=== PATIENT | male | born 1950 | race Caucasian/White ===

== ENCOUNTER 2016-11-27 15:00 | Inpatient (IN) | payer OTHER ==
[~2016-11-27] VITALS: Ht 167.6 cm; Wt 83.0 kg
--- NOTE | 2016-11-27 15:46 | NUR ---
EMT AT BEDSIDE FOR EKG
--- NOTE | 2016-11-27 15:50 | NUR ---
PT OFF THE FLOOR AT THIS TIME TO XRAY.
[2016-11-27 15:55] LABS: CALCIUM 8.6 mg/dL (8.5-10.1); CHLORIDE SERUM 100 mmol/L (98-107); CREATININE SERUM 1.2 mg/dL (0.7-1.3); GFR1 > 60 mL/min; GLUCOSE SERUM 174 mg/dL (74-106); POTASSIUM SERUM 3.6 mmol/L (3.5-5.1); SODIUM SERUM 134 mmol/L (136-145)
[2016-11-27 15:59] LABS: BASOPHIL % 0.2 % (0-2); PLATELET COUNT 224 x10^3mcL (130-400); RED CELL DISTRIBUTION WIDTH 13.6 % (11.5-14.5)
[2016-11-27 16:00] LABS: ALBUMIN 3.6 g/dL (3.4-5.0); ALKALINE PHOSPHATASE 74 U/L (46-116); ALT/SGPT 24 U/L (16-63); AST/SGOT 19 U/L (15-37); BILIRUBIN TOTAL 0.78 mg/dL (0.20-1.00); TOTAL PROTEIN, SERUM 7.3 g/dL (6.4-8.2)
--- NOTE | 2016-11-27 16:16 | NUR ---
PT BROUGHT TO ER BY SON FOR BILATERAL ARM PAIN AFTER FALLING 4 FT ONTO CONCRETE AT WORK YESTERDAY. PT WAS TAKEN BY AMBULANCE TO [facility] AND D/C HOME AND WAS TO F/U AT [facility]. PT WAS SEEN YESTERDAY AND TODAY BY THEM AND WAS TOLD HE NEEDS TO BE SEEN IN ER. PT IS AMBULATORY, DENIES HITTING HEAD OR LOC, +PMSC AND +RADIAL PULSES. PT BREATHING IS UNLABORED AND EVEN AND PTIN SLING FROM POE X1 DAY.
[2016-11-27] MEDS ORDERED: NORCO1 TA2 (17:03)
[2016-11-27] MEDS ORDERED: ASPIR 8181 MG PO (17:03)
--- NOTE | 2016-11-27 17:25 | NUR ---
PT RESTING IN POC, CALL LIGHT IN REACH OF HAND AND SIDE RAILS UP FOR SAFETY.
--- NOTE | 2016-11-27 17:32 | NUR ---
per dr navarro, pt ok to be transfered withot ua.
[2016-11-27 18:12] LABS: PHOSPHOROUS 3.1 mg/dL (2.5-4.9)
--- NOTE | 2016-11-27 18:14 | NUR ---
GAVE REPORT TO SANA ARCINIEGA, ALL QUESTIONS ADDRESSED AT THIS TIME.
[2016-11-27 18:15] LABS: CHOLESTEROL/HDL RATIO 3.7; MAGNESIUM 2.1 mg/dL (1.8-2.4)
[2016-11-27 18:16] LABS: T3 TOTAL 1.07 ng/mL
[2016-11-27 18:25] LABS: FREE T4 1.07 ng/dL (0.76-1.46); FREE THYROXINE INDEX 2.8 ug/dL (1.4-4.5); T4(THYROXINE) 8.9 ug/dL (4.7-13.3)
[2016-11-27 18:51] VITALS: BP 132/77
--- NOTE | 2016-11-27 18:59 | NUR ---
REC'D AOX4, SPEECH CLEAR, DENIES DIZZINES AND SALGADO. C/O RIGHT ARM/SHOULDER PAIN. FAMILY AT THE BEDSIDE. ATTACHED TELE 2 NSR. DENIES CHEST PAIN. ON RA, NO SOB NOTED. NOTED SLING TO LEFT ARM AND BRACE TO RIGHT ARM STRAPPED TO CHEST VEST. IV SITE WNL. ORIENTED PT TO ROOM AND SURROUNDINGS. CALL LIGHT WITHIN REACH, PROVIDED REPORT TO SANA ARCINIEGA.
--- NOTE | 2016-11-27 19:20 | NUR ---
PATIENT RECEIVED AWAKE, ALERT AND ORIENTED X 4. SON AT BEDSIDE. NO DISTRESS NOTED. PATIENT STATES PAIN TO BUE ONLY PRESENT WITH MOVEMENT. DENIES PAIN AT THIS TIME. IV SITE TO RIGHT HAND, PATENT AND INTACT. IV FLUID INFUSING PER DOCTOR'S ORDER. BED IN LOWEST POSITION. CALL LIGHT WITHIN REACH. WILL CONTINUE TO MONITOR.
[2016-11-27 21:07] LABS: UA SPECIFIC GRAVITY <=1.005 (1.005-1.035); microscopic required? YES; urine erythrocyte 1+ (NEGATIVE)
[2016-11-27 21:10] VITALS: BP 134/79
[2016-11-27 21:16] LABS: AMPHETAMINE QUAL UR NONE DETECTED (NEG <=1000)
--- NOTE | 2016-11-28 05:00 | NUR ---
PATIENT RESTED THROUGHOUT THE NIGHT. NO DISTRESS NOTED. MEDICATED FOR PAIN WITH NORCO PO (PER PATIENT'S REQUEST) X 2 PER DOCTOR'S PRN ORDER. PAIN MANAGED THROUGHOUT THE NIGHT. ALL NEEDS MET. SAFETY AND COMFORT MEASURES MAINTAINED. BED IN LOWEST POSITION. CALL LIGHT WITHIN REACH. WILL CONTINUE TO MONITOR AND ENDORSE TO NEXT SHIFT NURSE.
[2016-11-28 05:45] VITALS: BP 120/69
--- NOTE | 2016-11-28 07:15 | NUR ---
RECIVED REPORT MARJORIE ORNELAS RN AT BEDSIDE. PT IS AOX4, ABLE TO FOLLOW COMMANDS. FOUND PT ON RA, NO SIGNS OF DISTRESS OR SOB NOTED AT THIS TIME. L ARM IS ON A SLING AT THIS TIME. PT IS ABLE TO WIGGLE FINGERS AND CAP REFIL WNL. SKIN INTACT. PT REFUSE PAIN MEDICATION. NS INFUSING AT 100 ML/HR TO R HAND. IV SITE WNL. BED AT LOW AND CALL LIGHT WITHIN REACH. STANDARD PRECAUTION IS EMPLEMENTED. PT IS AWRE OF BEING NPO.
[2016-11-28 09:14] VITALS: BP 142/61
--- NOTE | 2016-11-28 10:06 | NUR ---
KOLTON WIPE IS GIVEN TO PT, PT'S DAUGHTER WILL ASSIST PT TO WIPE BELOW NECK. NO SIGNS OF DISTRESS OR SOB NOTED AT THIS TIME. BED AT LOW AND CALL LIGHT WITHIN REACH.
--- NOTE | 2016-11-28 11:47 | NUR ---
PT IS TRANSFER TO OR VIA BED, PT IS SALINE LOCK. NO SIGNS OF SOB OR ACUTE DISTRESS. CONSENTS AND CHECKLIST IS IN CHART. AWAITING FOR PT FROM SX.
--- NOTE | 2016-11-28 12:46 | NUR ---
echocardiogram not done patient not in room
--- NOTE | 2016-11-28 14:48 | NUR ---
ECHO PENDING PT. NOT IN ROOM
--- NOTE | 2016-11-28 17:34 | NUR ---
PT TRANSFER BACK TO ROOM VIA BED, NO SIGNS OF SOB OR ACUTE DISTRESS. PT DENIES PAIN. L WRIST CAST IS CDI. R SHOULDER ON IMMBOLIZER, FAVIOLA TAPE ON R SHOULER CDI. PT DENIES PAIN AND N/V AT THIS TIME. RT IN ROOM EXPLAINING IS. BED AT LOW AND CALL LIGHT WITHIN REACH. AT BEDSIDE.
--- NOTE | 2016-11-28 17:36 | NUR ---
PT IS TRANSFER BACK TO ROOM VIA BED. NO SIGNS OF ACUTE DISTRESS OR SOB NOTED. FAMILY AT BEDSID.
[2016-11-28 17:39] VITALS: BP 145/73
--- NOTE | 2016-11-28 17:44 | NUR ---
BENEDICT CATH REMOVED. PT IS AWARE TO REPORT WHEN HE URINATES. BED AT LOW AND CALL LIGHT WITHIN REACH. PT'S TRAY IS SET UP. IS FEEDING PT.
[2016-11-28 18:45] VITALS: BP 145/73
--- NOTE | 2016-11-28 19:11 | NUR ---
ENDORSED ALL CARE TO CHEO ARCINIEGA. PT RETING IN BED AT THIS TIME. R SHOULDER DRESSING CDI. L ARM CAST, CDI. PT DENIES ANY PAIN AT THIS TIME. NS INFUSING AT 100 ML/HR TO L FOOT. IV SITE WNL. BED AT LOW AND CALL LIGHT WITHIN REACH.
--- NOTE | 2016-11-28 19:20 | NUR ---
PATIENT RECEIVED AWAKE, ALERT, AND ORIENTED X 4. NO DISTRESS NOTED. PATIENT C/O 5/10 PAIN TO HIS BUE BUT REFUSED PAIN MEDS AT THIS TIME STATING PAIN IS ONLY PRESENT WITH MOVEMENT. IV SITE TO LEFT FOOT, PATENT AND INTACT. IV FLUID INFUSING PER DOCTOR'S ORDER. BED IN LOWEST POSITION. CALL LIGHT WITHIN REACH. WILL CONTINUE TO MONITOR.
--- NOTE | 2016-11-28 22:00 | NUR ---
BLEEDING THROUGH DRESSING NOTED ON RIGHT SHOULDER. REINFORCED WITH GAUZE AND TAPE. DR ARCHULETA AWARE. WILL CONTINUE TO MONITOR.
[2016-11-28 22:05] VITALS: BP 141/79
--- NOTE | 2016-11-29 05:17 | NUR ---
PATIENT RESTED IN INTERVALS THROUGHOUT THE NIGHT. MEDICATED FOR PAIN WITH NORCO PO X 1 AND MORPHINE IVP X 1 PER DOCTOR'S PRN ORDER. PAIN MANAGED THROUGHOUT THE NIGHT. ALL NEEDS MET. SAFETY AND COMFORT MEASURES MAINTAINED. BED IN LOWEST POSITION. CALL LIGHT WITHIN REACH. WILL CONTINUE TO MONITOR AND ENDORSE TO NEXT SHIFT NURSE.
[2016-11-29 05:49] VITALS: BP 123/62
[2016-11-29 06:17] LABS: BASOPHIL % 0.3 % (0-2); PLATELET COUNT 156 x10^3mcL (130-400); RED CELL DISTRIBUTION WIDTH 13.7 % (11.5-14.5)
[2016-11-29 06:33] LABS: CARBON DIOXIDE 27.3 mmol/L (21-32); CHLORIDE SERUM 105 mmol/L (98-107); CREATININE SERUM 0.9 mg/dL (0.7-1.3); GFR1 > 60 mL/min; GLUCOSE SERUM 122 mg/dL (74-106); PHOSPHOROUS 3.1 mg/dL (2.5-4.9); POTASSIUM SERUM 3.9 mmol/L (3.5-5.1); SODIUM SERUM 138 mmol/L (136-145)
--- NOTE | 2016-11-29 07:25 | NUR ---
ECHO NOT DONE PENDING DR. CONSULT POST SURGERY. UNABLE TO REMOVE CHEST WRAP TO PERFORM ECHO STUDY.
[2016-11-29 09:05] VITALS: BP 115/53
--- NOTE | 2016-11-29 10:32 | NUR ---
SON WAS OUT OF ROOM DURING ROUNDS THIS AM. WOULD LIKE TO TALK WITH DOCTOR FOR UPDATED. PAGED AND SPOKE WITH DR BRANNON WHO WILL COME SEE PATIENT LATER THIS MORNING.
--- NOTE | 2016-11-29 12:30 | NUR ---
PATIENT RESTING IN BED COMFORTABLE, DENIES PAIN, SON AT BEDSIDE ASSISTING PATIENT WITH LUNCH. NEEDS ANTICIPATED. CALL LIGHT WITHIN REACH AND BED IN LOW POSITION.
--- NOTE | 2016-11-29 13:08 | NUR ---
ECHOCARDIOGRAM COMPLETED
--- NOTE | 2016-11-29 13:43 | NUR ---
EDUCATED ON NEED TO MOVE FINGERS TO ASSIST WITH GETTING SWELLING TO GO DOWN IN HANDS. ALSO TO CONTINUE USING IS. VERBALIZED UNDERSTANDING.
--- NOTE | 2016-11-29 13:50 | NUR ---
UP EARLIER WITH PT. ONLY PAIN IS WHEN HE GOT IN AND OUT OF BED. DECLINES PAIN MEDS AT THIS TIME.
--- NOTE | 2016-11-29 13:59 | NUR ---
REPORTS PAIN 9/10 WHEN MOVING THE SURGERY SITE. WHEN NOT MOVING, 2/10. MEDICATED WITH MORPHINE FOR 9/10 PAIN FROM REPOSITIONING.
--- NOTE | 2016-11-29 14:47 | NUR ---
Dr. Galicia seen patient and speak to son, update pt's condition, MD assess Rt shoulder and changed dressing, patient tolerated well, no complaints, family remain at bedside, call light within reach.
--- NOTE | 2016-11-29 17:04 | NUR ---
PT EVAL NOTES [id number] Patient is a 66 y/o male admitted s/p fall sustaining R prox humerus fx and L distal radius fx s/p R shld hemiarthroplasty of R prox humerus and ORIF of L distal radius. Patient sustained injury while at work falling off back on truck. Patient lives with family in 2 story condo with one flight of step to negotiate, PLOF indep with gait and all ADLs/IADLs. Prec: NWB BUE with RUE in shld immobilizer and L arm casted, fall risk, 2PA S: Patient c/o 01/14 R shld and L wrist pain, premedicated, cleared by RN, and patient agreeable to PT POC. O: Patient appears a/o, patient and son educated on PT POC/safety with mobility with good return understanding. BP 151/62/821 on RA with SpO2 98%. Bed mobility supine<>sit, rolling: mod assist Transfers sit<>stand, bed<>chair: min assist Gait: 200 w/o AD with DIRECTOR OF PSYCHIATRY with min assist Patient demo unsteady antalgic recip gait d/t decreased BUE swing Patient assisted BTB with modx2 assist, all lines in place, call light in hand, nursing aware. A: PT eval completed, and patient will benefit from skilled PT tx to adress functional limitations. Patient presents with gait instability s/p sx requiring overall min/mod assist, inability of BUE mgmt, impairing functional mobility. Recomm home with assist, no DME at this time, f/u with OPPT once appropriate and [facility]. P: Patient to be seen per PT POC, twice daily 5x/wk;once daily 1x/wk x 1/wk with focus on bed mobility/transfers/gait/stair trng, and patient/fam edu. Cont with PT POC as ventura/safe. [id number]' [id number] TUG 20 [id number] Patient/fam education and trng with bed mobility, transers, gait, and safety with good return undestanding and demo, but will cont to benefit from further edu. PVE8'
--- NOTE | 2016-11-29 17:22 | NUR ---
PATIENT RESTING IN BED DENIES PAIN BUT OFFERED JESSICA, PATIENT STATE " WANT TO BE STRONG". ENCOURAGE PAIN MED FOR COMFORT AND ABLE TO EXERCISE HANDS W/O PAIN. FAMILY MEMBERS REMAIN AT BEDSIDE. CALL LIGHT WITHIN REACH.
[2016-11-29 19:00] VITALS: BP 124/61
--- NOTE | 2016-11-29 19:40 | NUR ---
RECEIVED Pt AAOX3 CALM AND COOPERATIVE WITH CARE. DENIES ANY CHEST PAIN. LUNG SOUNDS ARE CTA BILATERALLY. PULSE OX 97% ON 2L/NC, DENIES ANY SOB. ENCOURAGED TO BE ON ROOM AIR IF NOT SOB. ACTIVE BOWEL SOUNDS X4 QUADS. DENIES ANY ABD PAIN, N/V/D. VOIDS FREELY USING THE URINAL. CAST TO RUE CDI, EDEMA NOTED TO RIGHT HAND, GOOD CAP REFILL, DENIES ANY PAIN, TINGLING, NUMBNESS. LEFT UPPER SHOULDER WITH DRESSING CDI AND SLING IN PLACE. DENIES ANY PAIN. IV SITE TO LEFT FOOT PATENT. RE-ORIENTED TO ROOM AND CALL LIGHT SYSTEM WITHIN EASY REACH. WILL CONTINUE TO MONITOR.
[2016-11-29 21:27] VITALS: BP 132/55
--- NOTE | 2016-11-30 00:30 | NUR ---
Pt AMBULATED IN HALLWAY WITH SON AT HIS SIDE. STEADY GAIT, NO SOB NOTED. REPORTS FEELING TIRED FAST WITH AMBUALTION. SAT AT CHAIR FOR 30MINUTES AFTER AMBULATION AND LATER ASSISTED BACK IN BED. SON IS AT BEDSIDE. WILL CONTINUE TO MONITOR.
--- NOTE | 2016-11-30 03:06 | NUR ---
Pt MEDICATED WITH NORCO FOR PAIN TO BUE AT 6. WILL CONTINUE TO MONITOR.
--- NOTE | 2016-11-30 05:08 | NUR ---
MEDICATED NEEDED FOR PAIN. Pt AMBULATED IN THE HALLWAY. VOIDING FREELY. NO BM NOTED. CAST AND DRESSINGS REMAIN IN PLACE CDI. CURRENTLY RESTING WITH EYES CLOSED. SON IS AT BEDSIDE. IV TO LEFT FOOT REMAIN PATENT. SAFEY AND COMFORT MEASURES REMAIN IN PLACE. WILL CONTINUE TO MONITOR.
[2016-11-30 05:46] LABS: BASOPHIL % 0.5 % (0-2); PLATELET COUNT 158 x10^3mcL (130-400); RED CELL DISTRIBUTION WIDTH 13.3 % (11.5-14.5)
[2016-11-30 06:04] LABS: CALCIUM 7.7 mg/dL (8.5-10.1); CHLORIDE SERUM 105 mmol/L (98-107); CREATININE SERUM 0.8 mg/dL (0.7-1.3); GFR1 > 60 mL/min; GLUCOSE SERUM 113 mg/dL (74-106); MAGNESIUM 1.9 mg/dL (1.8-2.4); PHOSPHOROUS 3.6 mg/dL (2.5-4.9); POTASSIUM SERUM 3.8 mmol/L (3.5-5.1); SODIUM SERUM 140 mmol/L (136-145)
[2016-11-30 06:07] VITALS: BP 124/49
--- NOTE | 2016-11-30 06:28 | NUR ---
I HAVE REVIEWED THE DATA COLLECTION BY YONATAN (NAME): SHUN REHMAN ENTERED ON (DATE/TIME):11/29/2016 7 PM-7 PM I CONCUR WITH THE DATA AND ANY EXCEPTIONS OR COMMENTS ARE LISTED BELOW:
--- NOTE | 2016-11-30 07:30 | NUR ---
PATIENT RESTING IN BED AWAKE AND ALERT WITH SON REMAIN AT BEDSIDE, DENIES PAIN AT THIS TIME, IV INTACT AND PATENT, NEEDS ANTICIPATED, CALL LIGHT WITHIN REACH.
--- NOTE | 2016-11-30 07:40 | NUR ---
SON FEEDING PATIENT BREAKFAST.
--- NOTE | 2016-11-30 09:30 | NUR ---
PATIENT SIT UP AT SIDE OF BED, SON GET PATIENT READY FOR AM CARE AND TO WALK IN HALLWAY, LOA 1 TAB PO GIVEN WITH ENCOURAGE TO TAKE IT FOR COMFORT WHILE WALKING, DUE MED GIVEN. NEEDS ANTICIPATED.
--- NOTE | 2016-11-30 09:44 | NUR ---
WASHED HAIR, LINEN CHANGE. WAS MEDICATED WITH NORCO. AMBULATED TO BATHROOM FOR ADLS. GIVEN WARM WIPES AND SON ASSISTING WITH BATH IN BATHROOM. ORAL CARE AND LOTION ALSO PROVIDED.
--- NOTE | 2016-11-30 09:45 | NUR ---
DISCUSSED IS USE. VERBALIZED UNDERSTANDING.
--- NOTE | 2016-11-30 10:11 | NUR ---
SITTING UP IN CHAIR, FAMILY BEDSIDE.
[2016-11-30 10:14] VITALS: BP 134/49
--- NOTE | 2016-11-30 11:07 | NUR ---
Per Dr. Destinee bruno to heplock but keep patient IV site.
--- NOTE | 2016-11-30 14:59 | NUR ---
MEDICATED WITH NORCO FOR 5/10 PAIN.
--- NOTE | 2016-11-30 17:30 | NUR ---
PATIENT UP TO BATHROOM WITH CLINICAL INVESTIGATOR, NO COMPLAINT. NEEDS ANTICIPATED.
--- NOTE | 2016-11-30 18:36 | NUR ---
Patient sit up at side of bed with visitor and family members at bedside, denies pain at this time. Needs anticipated. Call light within reach.
[2016-11-30 18:41] VITALS: BP 147/71
[2016-11-30 18:51] VITALS: BP 147/71
--- NOTE | 2016-11-30 18:53 | NUR ---
PATIENT RESTING IN BED REQUEST FOR PAIN MED, C/O 01/14 AFTER EXERCISE HANDS, NORCO 1 TAB PO GIVEN, NEEDS ATTENDED. CALL LIGHT WITHIN REACH.
--- NOTE | 2016-11-30 19:59 | NUR ---
PT CURRENTLY RESTING IN BED, NO ACUTE DISTRESS. A/O X4. NO TELE, MED/SURG. DENIES CHEST PAIN. PULSES PALPABLE IN ALL EXTREMITIES, TRACE EDEMA TO LEFT HAND NOTED. LUNG SOUND CTA BILATERALLY. BOWEL SOUNDS ACTIVE, LAST BM 11/27/16. VOIDING WELL. MILD GENERALIZED WEAKNESS NOTED, WEAKNESS TO BUE NOTED, AMBULATORY WITH ASSIST. LEFT ARM CAST, RIGHT SHOULDER DRESSING CDI. DENIES PAIN AT THIS TIME. IV PATENT AND INTACT. BED IN LOWEST POSITION, SIDE RAILS UP X2, SCDS IN PLACE, CALL LIGHT WITHIN REACH. WILL CONTINUE TO MONITOR.
[2016-11-30 21:48] VITALS: BP 122/54
[2016-12-01 05:34] VITALS: BP 122/54
[2016-12-01 05:53] LABS: BASOPHIL % 0.5 % (0-2); PLATELET COUNT 200 x10^3mcL (130-400); RED CELL DISTRIBUTION WIDTH 13.3 % (11.5-14.5)
--- NOTE | 2016-12-01 06:24 | NUR ---
PT SLEPT PERIODICALLY THROUGHOUT NIGHT, NO ACUTE DISTRESS. ALL NEEDS MET AND ATTENDED TO. NO SIGNIFICANT CHANGES. MEDICATED PAIN PER EMAR. IV PATENT AND INTACT. BED IN LOWEST POSITION, SIDE RAILS UP X2, SCDS IN PLACE, CALL LIGHT WITHIN REACH. WILL ENDORSE CARE TO ONCOMING NURSE.
[2016-12-01 06:33] LABS: SODIUM SERUM 138 mmol/L (136-145)
[2016-12-01 06:34] LABS: CHLORIDE SERUM 104 mmol/L (98-107)
[2016-12-01 06:35] LABS: CALCIUM 8.3 mg/dL (8.5-10.1); CARBON DIOXIDE 27.9 mmol/L (21-32); CREATININE SERUM 0.7 mg/dL (0.7-1.3); GFR1 > 60 mL/min; GLUCOSE SERUM 118 mg/dL (74-106)
--- NOTE | 2016-12-01 08:00 | NUR ---
A/A/OX3; COMORAN SPEECH; SON AT BED SIDE FOR TRANSLATION. NO RESP DISTRESS. CAST TO LUE INTACT. DRSG TO RT SHOULD WITH IMMOBOLIZER. AMBULATED WITH ASSIST. STATED LUE AND RT SHOULDER PAIN ON 11/14, TOLERATED LEVEL. IVHL'D TO L FOOT INTACT. ALEXY HANDS SELLING 1-2+. 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 LARGE BRUISE TO BUE AND RT WRIST AREA NOTED. CALL LIGHT IN REACH.
--- NOTE | 2016-12-01 08:20 | NUR ---
AND MEDICAL TEAM MADE MORNING ROUND.PLAN OF CARE DISCUSSED WITH PATIENT AND HIS SON, INCLUDED WITH PHYSICAL THERAPY. PATIENT AGREED WITH PLAN OF CARE.
[2016-12-01 09:35] VITALS: BP 149/65
--- NOTE | 2016-12-01 15:32 | NUR ---
PT NOTES TIME [id number] S: CLEARED BY RN FOR P.T. TX. PATIENT IS AWAKE & ALERT IN A SEMI RANDOLPH POSITION IN BED. AGREEABLE TO PT TX. NO C/O PAIN OR DIZZINESS AT THIS TIME. FAMILY PRESENT AT BEDSIDE. O: VITALS AT REST BP 149/65, HR 85 BPM, SPO2 ON RA 96% BED MOBILITY: SUPINE<>SIT W/ MIN ASSIST. VC GIVEN FOR STEP BY STEP BED MOBILITY SEQUENCE. TRANSFER: SIT<>STAND SBA/CGA TOILETING SBA/CGA GAIT: 80FT NO A.D. SBA/CGA. PATIENT HAS A STEADY GAIT. NO LOB. DECREASE GAIT VELOCITY & SHORTENED STEP LENGTHS. PATIENT DOES STATE TO SON "LEGS FEEL WEAK." EDUCATED PATIENT ON ENERGY CONSERVATION & SAFETY FOR FALL PREVENTION W/ GOOD UNDERSTANDING. STAIRS: 10 STEPS UP/DOWN W/ AHA CGA. PATIENT EDUCATED ON A NON RECIPROCRAL STAIR TRAINING PATTERN. PATIENT UNABLE TO HOLD ONTO RAILING DUE TO R HUMERUS & L WRIST FX. THEREFORE PATIENT & FAMILY EDUCATED ON SAFE STAIR TRAINING W/ GOOD UNDERSTANDING. COOPERATIVE & APPRECIATIVE OF CARE. THER EX SIT<>STAND X 4 REPS & FINGER FLEX/EXT EKATERINA. W/ REST PERIODS IN BETWEEN. PATIENT IS SAFELY & COMFORTABLY IN A SEMI RANDOLPH POSITION IN BED W/ CALL BUTTON & TABLE IN REACH. LEFT IN CARE OF FAMILY. RN NOTIFIED. P: DISCUSSED W/ PRIMARY PHYSICAL THERAPIST [id number]',[id number]',[id number]',PVE(SETUP/TOILETING)
--- NOTE | 2016-12-01 15:49 | NUR ---
PT NOTES P.M. TIME [id number] S: CLEARED BY RN FOR PT TX. PATIENT IS AWAKE & ALERT IN A SEMI RANDOLPH POSITION IN BED. AGREEABLE TO P.T. TX. NO C/O PAIN OR DIZZINESS. FAMILY PRESENT AT BEDSIDE. O: VITALS AT REST 124/61, HR 94 BPM, SPO2 ON RA 95%. BED MOBILITY: SUPINE<>SIT MIN ASSIST. STILL CONTINUES TO REQUIRE VC W/ PROPER BED MOBILITY STEP BY STEP SEQUENCING. TRANSFER: SIT<>STAND SBA. GAIT: 80FT NO A.D. SBA/CGA. PATIENT STILL CONTINUES TO DEMO A STEADY GAIT NO LOB. NO ARM SWING DUE TO R UE IN A SHOULDER IMMOBILIZER & L UE IN A CAST. R HUMERUS & L WRIST FX. DECREASE GAIT VELOCITY. EDUCATED ON SAFETY FOR FALL PREVENTION W/ GOOD UNDERSTANDING. STAIRS: 10STEPS UP/DOWN X 2 AHA CGA. PATIENT STILL DEMO'S A STEADY NON RECIPROCAL STAIR TRAINING PATTERN. NO LOB OBSERVED. DURING SECOND ATTEMPT AT STAIR TRAINING, PATIENT'S PROVIDED CGA W/ MINIMAL VC/TC GIVEN TO ASSIST PATIENT SAFELY. EDUCATED PATIENT & ON STAIR TRAINING W/ G UNDERSTANDING. COOPERATIVE & APPRECIATIVE OF CARE. PATIENT IS SAFELY & COMFORTABLY IN A SEMI RANDOLPH POSITION IN BED W/ CALL BUTTON & TABLE IN REACH. LEFT IN CARE OF RN. P: DISCUSSED W/ PRIMARY PHYSICAL THERAPIST [id number]',TA10'
--- NOTE | 2016-12-01 16:00 | NUR ---
AMBULATED IN [address] WITH ASSIST OF . DENIED PAIN NOW.
[2016-12-01 18:21] VITALS: BP 142/93
--- NOTE | 2016-12-01 19:38 | NUR ---
RECEIVED PATIENT IN BED AWAKE, ALERT AND ORIENTED WITH NO C/O PAIN TO RT SHOULDER AND LEFT ARM THIS TIME. LEFT ARM WITH CAST AND RT SHOULDER WITH IMMOBILIZER. FAMILY MEMBERS AT BEDSIDE. SCD TO BLE IN PLACE. IV TO LEFT FOOT HEPLOCK AND FLUSHED WITH NS. WILL CONTINUE TO MONITOR. CALL LIGHT WITHIN REACH.
--- NOTE | 2016-12-01 21:07 | NUR ---
C/O PAIN TO RIGHT SHOULDER AT SCALE OF 7/10 PER PATIENT, MEDICATED WITH NORCO PO PRESCRIBED. WILL CONTINUE TO MONITOR.
[2016-12-01 21:32] VITALS: BP 170/68
--- NOTE | 2016-12-01 22:52 | NUR ---
T-100.0 COOLING MEASURES DONE, WILL RECHECK TEMP.
--- NOTE | 2016-12-01 23:32 | NUR ---
SLEEPING THIS TIME BREATHING EASY AND NONLABOR. WILL CONTINUE TO MONITOR.
--- NOTE | 2016-12-02 05:24 | NUR ---
SLEPT FAIRLY C/O RT SHOULDER PAIN X1 THROUGHOUT THE SHIFT AND MEDICATED PRESCRIBED. ALL NEEDS ATTENDED.
[2016-12-02 06:20] VITALS: BP 144/40
[2016-12-02 06:20] LABS: BASOPHIL % 0.5 % (0-2); PLATELET COUNT 250 x10^3mcL (130-400); RED CELL DISTRIBUTION WIDTH 13.7 % (11.5-14.5)
[2016-12-02 06:29] LABS: CALCIUM 8.9 mg/dL (8.5-10.1); CARBON DIOXIDE 30.5 mmol/L (21-32); CHLORIDE SERUM 104 mmol/L (98-107); CREATININE SERUM 0.8 mg/dL (0.7-1.3); GFR1 > 60 mL/min; GLUCOSE SERUM 110 mg/dL (74-106); SODIUM SERUM 139 mmol/L (136-145)
--- NOTE | 2016-12-02 08:00 | NUR ---
A/A/OX3. NO ACUTE DISTRESS. DRSG TO RT SHOULDER W/ IMMOBOLIZER D/I. SHORT ARM CAST TO LFA INTACT. ALEXY HANDS SWELLING TRACE EDEMA. ENCOURAGE TO DO HAND EXERCISES. NO C/O PAIN NOW. IVHL'D TO L FOOT. AMBULATED WITH ASSIST. CALL LIGHT IN REACH.
--- NOTE | 2016-12-02 08:33 | NUR ---
C/O INCISIONAL PAIN ON 01/14. NORCO 7.5/325 PO GIVEN.
--- NOTE | 2016-12-02 08:50 | NUR ---
DR. EATON AND MEDICAL TEAM MADE MORING ROUND. PLAN OF CARE DISCUSSED WITH PATIENT, INCLUDED WITH TRANSFER TO [facility] IF INSURANCE APPROVED. PATIENT AND FAMILY AGREED WITH PLAN OF CARE.
[2016-12-02 09:25] VITALS: BP 130/59
[2016-12-02] MEDS ORDERED: COL100 PO (12:08)
[2016-12-02] MEDS ORDERED: NORCO1 TA2 PO (15:14)
[2016-12-02] MEDS ORDERED: ZOF4 PO (15:15)
--- NOTE | 2016-12-02 15:41 | NUR ---
PT NOTES A.M. TIME [id number] S: CLEARED BY RN FOR P.T. TX. PATIENT IS AWAKE & ALERT IN SEMI RANDOLPH POSITION IN BED. AGREEABLE TO P.T. TX. C/O R SHOULDER PAIN 01/14. O: VITALS AT REST BP 148/75, HR 77 BPM, SPO2 ON RA 98% BED MOBILITY: SUPINE<>SIT MIN ASSIST. TRANSFER: SIT<>STAND W/ SBA. GAIT: 80FT W/ NO A.D. SBA. PATIENT DEMO'S A STEADY GAIT, BUT STILL HAS DECREASE GAIT VELOCITY. BILAT ELBOW IN FLEXION. L UE IN A CAST & R UE IN A SHOULDER IMMOBILIZER. SHORTENED STRIDE LENGTHS. STAIRS: 10 SETPS W/ AHA CGA X 2. PATIENT IS ABLE TO SAFELY DEMO'S NON RECIPROCAL STEP TRAINING PATTERN. NO LOB OBSERVED. STEADY. EDUCATED PATIENT ON SAFETY FOR FALL PREVENTION & PROPER STAIR TRAINING PATTERN W/ GOOD UNDERSTANDING. THER EX SIT<>STAND X 5 REPS, HEEL RAISES X 10 REPS. PATIENT IS SAFELY & COMFORTABLY SITTING UP IN AT EOB W/ CALL BUTTON & TABLE IN REACH. RN NOTIFIED. P: DISCUSSED W/ PRIMARY PHYSICAL THERAPIST [id number]',TA10',[id number]'
--- NOTE | 2016-12-02 15:51 | NUR ---
PT NOTES P.M. TIME [id number] S: CLEARED BY RN FOR P.T. TX. PATIENT IS AWAKE & ALERT STANDING BY RESTROOM. AGREEABLE TO P.T. TX. PRESENT & ASSISTING PATIENT. NO C/O PAIN OR DIZZINESS AT THIS TIME. O: BED MOBILITY: N/T TRANSFER: SIT<>STAND SBA GAIT: 80FT NO A.D. SBA. STILL HAS A DECREASED GAIT VELOCITY. SHORTENED STRIDE LENGTH. STEADY GAIT NO LOB. STAIRS: 20STEPS UP/DOWN SBA/CGA. PATIENT DEMO'S NON RECIPROCAL STEP PATTERN. UNABLE TO HOLD ONTO RAILING DUE TO R SHOULDER IMMOBILIZE & L UE IN A CAST. STEADY W/ NO LOB. IS ASSISTING PATIENT DURING STAIR TRAINING & GIVEN VC ON HOW TO PROPERLY ASSIST PATIENT. EDUCATED PATIENT ON SAFETY FOR FALL PREVENTION & STAIR TRANING W/ G UNDERSTANDING. COOPERATIVE & APPRECIATIVE OF CARE. PATIENT IS SAFELY & COMFORTABLY SITTING UP AT EOB W/ CALL BUTTON & TABLE IN REACH. RN NOTIFIED. P: DISCUSSED W/ PRIMARY PHYSICAL THERAPIST GT25',PVE(2) ADDITIONAL STAFF SBA FOR SAFETY)
[2016-12-02 16:21] VITALS: BP 130/59
--- NOTE | 2016-12-02 17:52 | NUR ---
D/C TO HOME W/ HOME HEALTH CARE PER ORDER. KAIT WILSON RN, GAVE INSTRUCTION OF DISCHARGE IN BULGARIAN. IV D/C'D. OVER NEEDLE CATH INTACT. CONDITION STABLE.
== END 2016-12-02 18:40 | disposition home health service (06) | DRG 483 ==
LOC: ED 15:00 → DU 17:07 → MU 17:07 → DU 18:32 → MU 11-28 05:54
PROVIDERS: Emergency Medicine; Family Medicine; Neuromusculoskeletal Medicine, Sports Medicine; ADMIT Family Medicine
PROC: 0PSJ3ZZ Reposition Left Radius, Percutaneous Approach (ICD-10-PCS; 2016-11-28)
PROC: 0RRJ0J6 Replacement of Right Shoulder Joint with Synthetic Substitute, Humeral Surface, Open Approach (ICD-10-PCS; principal; 2016-11-28 11:30)
DX: S42.291A Other displaced fracture of upper end of right humerus, initial encounter for closed fracture (principal); N17.0 Acute kidney failure with tubular necrosis; E87.1 Hypo-osmolality and hyponatremia; S52.572A Other intraarticular fracture of lower end of left radius, initial encounter for closed fracture; I10 Essential (primary) hypertension; E78.5 Hyperlipidemia, unspecified; D64.9 Anemia, unspecified; Z87.891 Personal history of nicotine dependence; Z68.30 Body mass index [BMI] 30.0-30.9, adult; W17.89XA Other fall from one level to another, initial encounter; Y92.59 Other trade areas as the place of occurrence of the external cause; Y99.0 Civilian activity done for income or pay
CPT/HCPCS: 80307; 83880; 84439; 94150; 97110-GP; 97116-GP; 97530-GP; J0690; J1170; J2270; J2405; J2704; J3010; J3490; J7030; J7120; Q0092